=== PATIENT | male | born 1975 | race Caucasian/White ===

== ENCOUNTER 2020-07-13 11:59 | Emergency (ER) | payer OTHER ==
[~2020-07-13 11:59] MED LIST: FLOMAX0.4 MG PO; NORCO 5-325 TA1 EACH PO; NORCO 7.5-3251 EACH PO; TORADOL 10 MG T10 MG PO; ZOFRAN4 MG PO
[2020-07-13 12:44] LABS: HEMOGLOBIN 13.5 gm/dl (14.0-17.5); RED BLOOD COUNT 5.14 M/UL (4.20-5.50)
[2020-07-13 13:09] LABS: BUN/CREATININE RATIO 12 (0-10)
[2020-07-13] MEDS ORDERED: PROAIR HFA8.5 GM INH (18:35)
== END 2020-07-13 18:56 | disposition home or self-care (01) ==
LOC: ER1 11:59
PROVIDERS: Emergency Medicine
DX: U07.1 COVID-19 (principal); J12.89 Other viral pneumonia; R00.0 Tachycardia, unspecified; Z88.0 Allergy status to penicillin
CPT/HCPCS: 71045; 80053; 82550; 82553; 83874; 84484; 85025; 93005; 96374; 96375; 96376; 99285; J1100; J2405; J7030; M0239; U0002

== ENCOUNTER 2021-12-20 14:46 | Emergency (ER) | payer BC ==
[~2021-12-20 14:46] MED LIST changes: +PROAIR HFA8.5 GM INH
[2021-12-20 16:22] LABS: HEMOGLOBIN 13.3 gm/dl (14.0-17.5); RED BLOOD COUNT 4.9 M/UL (4.20-5.50)
[2021-12-20 16:37] LABS: BUN/CREATININE RATIO 8 (0-10)
[2021-12-20] MEDS ORDERED: NITROSTAT 0.3100 TAB SL (20:19)
== END 2021-12-20 20:30 | disposition home or self-care (01) ==
LOC: ER1 14:46
PROVIDERS: Physician Assistant
DX: R07.89 Other chest pain (principal); M79.89 Other specified soft tissue disorders; K21.9 Gastro-esophageal reflux disease without esophagitis; Z88.0 Allergy status to penicillin; Z51.81 Encounter for therapeutic drug level monitoring
CPT/HCPCS: 71045; 80053; 82550; 82553; 83605; 83880; 84484; 85025; 85610; 93005; 96374; 99285; J1885

== ENCOUNTER → 2022-03-23 | Outpatient (CLI) | payer BC ==
[~2022-03-23] MED LIST changes: +NITROSTAT 0.3100 TAB SL
== END ==
LOC: HEART 5 08:00
DX: I50.9 Heart failure, unspecified (principal); R00.2 Palpitations; I25.2 Old myocardial infarction; E11.9 Type 2 diabetes mellitus without complications
CPT/HCPCS: 93306